=== PATIENT | male | born 1980 | race Asian ===

== ENCOUNTER 2021-03-22 14:54 | Inpatient (IN) | payer OTHER ==
[~2021-03-22] VITALS: Ht 175.3 cm; Wt 77.1 kg
[2021-03-22 15:06] VITALS: BP 123/81
[2021-03-22 15:31] LABS: ABSOLUTE NEUTROPHILS 3.8 thou/uL (1.4-8.2); BASOPHILS 0.7 % (0.0-2.0); EOSINOPHILS 0.1 % (0.0-3.0); HEMATOCRIT 44.7 % (42.0-52.0); HEMOGLOBIN 15.3 gm/dL (14.0-18.0); LYMPHOCYTES 38.7 % (24.0-44.0); MCH 30.1 pg (26.0-34.0); MCHC 34.3 g/dL (28.0-37.0); MCV 87.7 fL (80.0-100.0); MONOCYTES 6.2 % (1.0-8.0); PLATELET COUNT 310 thou/uL (150-400); POLYS 54.3 % (36.0-66.0); RBC 5.09 mil/uL (4.50-6.00); RDW 13.8 % (10.5-14.5)
[2021-03-22 15:46] LABS: CALCIUM 8.4 mg/dL (8.5-10.1); CREATININE 0.8 mg/dL (0.7-1.3); POTASSIUM 3.2 mmol/L (3.5-5.1)
[2021-03-22 15:51] LABS: ALBUMIN 3.9 g/dL (3.4-5.0); TOTAL BILIRUBIN 0.6 mg/dL (0.2-1.0); TOTAL PROTEIN 7.9 g/dL (6.4-8.2)
[2021-03-22 15:58] LABS: AMP/METHAMP Negative (Negative); BARBITURATES Negative (Negative); BENZODIAZEPINES Negative (Negative); COCAINE Negative (Negative); METHADONE Negative (Negative); OPIATES Negative (Negative); PCP Negative (Negative)
[2021-03-22 20:26] VITALS: BP 129/84
[2021-03-23 06:05] LABS: FOLIC ACID 16.3 ng/mL (8.6-58.9)
[2021-03-23 11:27] VITALS: BP 132/76
[2021-03-23 12:01] VITALS: BP 124/76
--- NOTE | 2021-03-23 12:47 | EKG ---
[address] [address] ELECTROCARDIOGRAM REPORT Name: CHRISTINE RUFFJULIÁN Room #: REG Kirby#: [id number] Admission: 03/22/21 Attend Phys: Discharge: Date of : 82 Report #: [id number] [facility] ED Test Date: 2021-03-23 Test Time: 06:03:30 Pat Name: JULIÁN RUFF Department: Room: Gender: Project Analyst: NICK : 1980 Requested By: Pasquale Guadalupe Order Number: [id number] MD: Zurdo Thakkar Measurements Intervals [place] Rate: 64 P: 18 LA: 158 QRS: 41 QRSD: 90 T: -11 QT: 419 QTc: 433 Interpretive Statements Sinus rhythm Consider left ventricular hypertrophy No previous ECG available for comparison Electronically Signed On 03-23-2021 12:46:53 INSPECTOR MACHINE [employer]S by Zurdo Thakkar [email or web address] <ELECTRONICALLY SIGNED> By: Zurdo Thakkar MD 03/23/21 1246 [id number] Zurdo Thakkar MD /ROSIE
--- NOTE | 2021-03-23 14:29 | NUR ---
RECEIVED REPORT FROM ED REGARDING THIS PATIENT. PT NONENGLISH SPEAKING; USED MANAGER COMMERCIAL REAL ESTATE SERVICE TO ASSIST WITH ADMISSION PROCESS. PT ALERT AND RESPONDS TO QUESTIONS APPROPRIATLEY. PT DENIES SOA, DIFFICULTY BREATHING; ON 2 L NC AT THIS TIME. DENIES CHEST PAIN AT THIS TIME BUT HAS HAD HEART PALPATIONS IN PLACE. DENIES NAUSEA AND VOMITING. PT REPORTS FEELING ANXIOUS, SWEATY, AND NERVOUS. CIWA PROTOCOL IN PLACE. ADMINISTERED PRN MEDICATION. ASSESSMENTS CHARTED. FALL PRECAUTIONS IN PLACE; CALL LIGHT WITHIN REACH. GOOD APPETITE. DENIES ANY NEEDS. WILL CONTINUE TO MONITOR.
[2021-03-23 19:44] VITALS: BP 127/84
--- NOTE | 2021-03-24 04:11 | NUR ---
Assumed patient care at 1900. Pt is alert and oriented, qatari-speaking. No sign of distress noted. Assessment completed and documented. [facility] protocol in place. Scheduled meds administered to pt. No acute event noted through night. Continue to monitor, no further needs at this time.
[2021-03-24 05:17] VITALS: BP 108/72
[2021-03-24 08:00] VITALS: BP 122/74
[2021-03-24] MEDS ORDERED: VITAMIN B-1100 M2 PO (12:47)
[2021-03-24] MEDS ORDERED: PEPCID20 MG PO (12:47)
--- NOTE | 2021-03-24 12:52 | 2DMMODE ---
[facility] [place] [address] 2 D/M-MODE ECHOCARDIOGRAM Name: CHRISTINE JULIÁN RUFF Room #: 203-P ADM IN M.R.#: [id number] Admission: 03/22/21 Attend Phys: Pasquale Guadalupe MD Discharge: Date of : 82 Report #: [id number] THIS REPORT FOR: cc: NO FAMILY PHYSICIAN or PCP NO FAMILY PHYSICIAN or PCP Eric Ray MD ~ APPROVED REPORT Study performed: 03/23/2021 11:08:16 EXAM: Comprehensive 2D, Doppler, and color-flow Echocardiogram Patient Location: In-Patient Room #: ER Status: routine BSA: 0.71 HR: 75 bpm BP: 133/78 mmHg Rhythm: NSR Other Information Study Quality: Adequate 2D Dimensions RVDd: 33.74 mm IVSd: 10.06 (7-11mm) LVOT Diam: 22.66 (18-24mm) LVDd: 49.01 mm PWd: 11.02 (7-11mm) LVDs: 28.18 (25-40mm) Aortic Root: 32.34 mm Volumes Left Atrial Volume (Systole) Single Plane 4CH: 21.12 mL Single Plane 2CH: 21.85 mL Aortic Valve AoV Peak Jaxon.: 1.51 m/s AO Peak Gr.: 9.15 mmHg AO Mean Gr.: 3.80 mmHg AO V2 Mean: 0.87 m/s AO V2 VTI: 27.83 cm Mitral Valve E/A Ratio: 1.2 MV Decel. Time: 263.37 ms [facility] [address] [place] [address] 2 D/M-MODE ECHOCARDIOGRAM Name: JULIÁN BRINK Room #: 203-P [facility] IN .R.#: [id number] Admission: 03/22/21 Attend Phys: Jane Mendoza Discharge: Date of : 82 Report #: [id number] MV E Max Jaxon.: 0.69 m/s MV A Jaxon.: 0.56 m/s MV PHT: 76.38 ms Pulmonary Valve PV Peak Jaxon.: 1.59 m/s PV Peak Gr.: 10.08 mmHg Tricuspid Valve TR Peak Jaxon.: 2.38 m/s TR Peak Gr.: 22.70 mmHg Left Ventricle The left ventricle is normal size. There is normal LV segmental wall motion. There is normal left ventricular wall thickness. The left ventricular systolic function is normal. The left ventricular ejection fraction is within the normal range. LVEF is 55-60%. The left ventricular diastolic function is normal. Right Ventricle The right ventricle is normal size. There is normal right ventricular wall thickness. The right ventricular systolic function is normal. Atria Left atrium is mildly dilated. The interatrial septum is intact with no evidence for an atrial septal defect. The right atrium size is normal. Aortic Valve The aortic valve is normal in structure. No aortic regurgitation is present. There is no aortic valvular stenosis. Mitral Valve The mitral valve is normal in structure. There is no mitral valve regurgitation noted. No evidence of mitral valve stenosis. There is no evidence of mitral valve prolapse. Tricuspid Valve The tricuspid valve is normal in structure. There is no tricuspid valve stenosis. Trace tricuspid regurgitation. Estimated PAP 25-30 mmHg. Pulmonic Valve The pulmonary valve is normal in structure. Mild pulmonic regurgitation. [facility] [address] [address] [place] [address] 2 D/M-MODE ECHOCARDIOGRAM Name: JULIÁN BRINK Room #: 203-P ADM IN M.R.#: [id number] Admission: 03/22/21 Attend Phys: Jane Mendoza Discharge: Date of : 82 Report #: [id number] Great Vessels The aortic root is normal in size. IVC is normal in size and collapses >50% with inspiration. Pericardium There is no pericardial effusion. <Conclusion> The left ventricle is normal size. LVEF is 55-60%. The right ventricle is normal size. There is normal right ventricular wall thickness. The right ventricular systolic function is normal. Left atrium is mildly dilated. The aortic valve is normal in structure. The tricuspid valve is normal in structure. Trace tricuspid regurgitation. Estimated PAP 25-30 mmHg. The pulmonary valve is normal in structure. Mild pulmonic regurgitation. The aortic root is normal in size. There is no pericardial effusion. There is no evidence of mitral valve prolapse. The interatrial septum is intact with no evidence for an atrial septal defect. <ELECTRONICALLY SIGNED> By: Eric Ray MD 03/24/21 1251 1251 125 Eric Ray MD /INF
[2021-03-24 12:57] VITALS: BP 122/74
--- NOTE | 2021-03-24 13:31 | NUR ---
ASSESSMENT CHARTED. PT ALERT AND ORIENTED. VSS. DENIED HAVING PAIN OR DISCOMFORT. SCORED A [address] MALIK. ORDERS GIVEN TO DISCHARGE PT TO HOME. DISCHARGE INSTRUCTIONS GIVEN TO PT AND THE FRIEND. THEY BOTH VERBERLISED UNDERSTANDING.
--- NOTE | 2021-03-25 07:18 | EKG ---
[address] [address] ELECTROCARDIOGRAM REPORT Name: JULIÁN BRINK Room #: 203-[facility] IN M.R.#: [id number] Admission: 03/22/21 Attend Phys: Pasquale Guadalupe MD Discharge: 03/24/21 Date of : 82 Report #: [id number] [facility] ED Test Date: 2021-03-22 Test Time: 15:39:18 Pat Name: JULIÁN RUFF Department: Room: 203 Gender: M Customer Relations Coordinator: eve : 1980 Requested By: Lonnie Jaquez Order Number: [id number] : Nate Dixon Measurements Intervals [place] Rate: 163 P: [place]: QRS: -3 QRSD: 130 T: 155 QT: 313 QTc: 516 Interpretive Statements Atrial fibrillation Left bundle branch block No previous ECG available for comparison Electronically Signed On 03-25-2021 7:18:23 IN ROOM DINING SERVER by Nate Dixon [email or web address] <ELECTRONICALLY SIGNED> By: Nate Dixon MD, [facility] 03/25/21 0718 1538 38 Nate Dixon MD, FACC /EPI
--- NOTE | 2021-03-25 07:18 | EKG ---
[address] [address] ELECTROCARDIOGRAM REPORT Name: JULIÁN BRINK Room #: 203-[facility] IN M.R.#: [id number] Admission: 03/22/21 Attend Phys: Pasquale Guadalupe MD Discharge: 03/24/21 Date of : 82 Report #: [id number] [facility] ED Test Date: 2021-03-22 Test Time: 15:41:27 Pat Name: JULIÁN RUFF Department: Room: 203 Gender: M Janitorial Manager: eve : 1980 Requested By: Lonnie Jaquez Order Number: [id number] : Nate Dixon Measurements Intervals [place] Rate: 105 P: 38 DC: 167 QRS: 5 QRSD: 132 T: 124 QT: 363 QTc: 480 Interpretive Statements Sinus tachycardia Left bundle branch block Compared to ECG 03/22/2021 15:39:18 Atrial fibrillation no longer present Electronically Signed On 03-25-2021 7:18:26 PRINTING ROLLER POLISHER by Nate Dixon [email or web address] <ELECTRONICALLY SIGNED> By: Nate Dixon MD, [facility] 03/25/21 0718 1541 1541 Nate Dixon MD, [facility] /EPI
== END 2021-03-24 13:40 | disposition home or self-care (01) | DRG 897 ==
LOC: ER 14:54 → EROBS 17:35 → 2N 03-23 12:57 → ER 03-23 12:57 → 2N 03-23 13:02 → EROBS 03-23 13:02 → 2N 03-23 13:07
PROVIDERS: Emergency Medicine; ADMIT Hospitalist; ATTEND Hospitalist
DX: F10.129 Alcohol abuse with intoxication, unspecified (principal); I47.1 Supraventricular tachycardia; R74.01 Elevation of levels of liver transaminase levels; I48.91 Unspecified atrial fibrillation; Z20.822 Contact with and (suspected) exposure to COVID-19; Z28.21 Immunization not carried out because of patient refusal
CPT/HCPCS: 10081